=== PATIENT | female | born 1985 | race Two or more races ===

== ENCOUNTER → 2021-04-06 | Outpatient (CLI) | payer OTHER ==
[~2021-04-06] MED LIST: IBUP200T49 PO; NONE PER PT; PNV1TABL11 PO
[2021-04-06 11:07] LABS: MICROSCOPIC NOT IND
[2021-04-06 11:13] LABS: BASOPHILS % (AUTO) 1 % (0-1); EOSINOPHILS % (AUTO) 1 % (1-7); LYMPHOCYTES % (AUTO) 34 % (22-44); MEAN CORPUSCULAR HEMOGLOBIN 27.9 pg (27.0-34.8); MEAN CORPUSCULAR HGB CONC 33.3 g/dL (32.4-35.8); MEAN PLATELET VOLUME 7.5 fL (7.4-10.4); MONOCYTES % (AUTO) 6 % (2-9); NEUTROPHILS % (AUTO) 59 % (42-75); PLATELET COUNT 272 x10^3/uL (130-400); RED BLOOD COUNT 5.01 x10^6/uL (3.82-5.3); RED CELL DISTRIBUTION WIDTH 14.6 % (9.6-15.2)
[2021-04-06 11:32] LABS: CHLORIDE 107 mmol/L (98-107)
[2021-04-06 11:50] LABS: ALANINE AMINOTRANSFERASE 17 U/L (12-78); ALKALINE PHOSPHATASE 60 U/L (45-117); ANION GAP 3 mmol/L (5-15); BILIRUBIN,TOTAL 0.3 mg/dL (0.2-1.0); CALCIUM 9.1 mg/dL (8.5-10.1); CREATININE 0.76 mg/dL (0.55-1.02); TOTAL PROTEIN 8.5 g/dL (6.4-8.2)
== END | disposition home or self-care (01) ==
LOC: STAR 10:23
PROVIDERS: ATTEND Obstetrics & Gynecology Gynecology
DX: Z01.818 Encounter for other preprocedural examination (principal); N80.9 Endometriosis, unspecified; R10.2 Pelvic and perineal pain; N94.12 Deep dyspareunia; N94.6 Dysmenorrhea, unspecified
CPT/HCPCS: 36415; 80053; 81003; 84703; 85025

== ENCOUNTER 2021-04-13 05:40 | Day surgery (SDC) | payer OTHER ==
[~2021-04-13] VITALS: Ht 157.5 cm; Wt 46.3 kg
[2021-04-13 06:18] VITALS: BP 97/66
[2021-04-13] MEDS ORDERED: LACTATED RINGERS 1,000 ML IV SCH (06:30)
[2021-04-13] MEDS ORDERED: CHLORHEXIDINE 15 ML UDC PO ONE (06:30)
[2021-04-13] MEDS ORDERED: METHYLENE BLUE 50 MG/10 ML AMP ONE (06:58)
[2021-04-13] MEDS ORDERED: SILVER NITRATE STICK TP ONE (06:59)
[2021-04-13] MEDS ORDERED: FENTANYL PF 250 MCG/5ML ONE (07:19)
[2021-04-13] MEDS ORDERED: MIDAZOLAM 1 MG/ML, 2ML ONE (07:19)
[2021-04-13] MEDS ORDERED: GLYCOPYRROLATE 0.2MG/1ML, 5ML ONE (07:21)
[2021-04-13] MEDS ORDERED: ROCURONIUM 10MG/ML,5ML ONE (07:21)
[2021-04-13] MEDS ORDERED: SUCCINYLCHOLINE 20 MG/ML, 10ML ONE (07:21)
[2021-04-13] MEDS ORDERED: NEOSTIGMINE 1 MG/ML, 10ML ONE (07:21)
[2021-04-13] MEDS ORDERED: CEFAZOLIN 1,000 MG ONE (07:21)
[2021-04-13] MEDS ORDERED: DEXAMETHASONE 4 MG/ML, 1ML ONE (07:21)
[2021-04-13] MEDS ORDERED: PROPOFOL 10 MG/ML, 20ML ONE (07:21)
[2021-04-13] MEDS ORDERED: ONDANSETRON 2MG/ML, 2ML ONE (07:21)
[2021-04-13] MEDS ORDERED: HEPARIN 1,000 UNITS/ML, 10ML ONE (08:17)
[2021-04-13] MEDS ORDERED: ONDANSETRON 2MG/ML, 2ML IVPush PRN (08:30)
[2021-04-13] MEDS ORDERED: HYDROmorphone 1 MG/ML, 1ML INJ IVPush PRN (08:30)
[2021-04-13] MEDS ORDERED: METHOCARBAMOL 1,000 MG in DEXTROSE 5% 100 ML IV PRN (08:30)
[2021-04-13] MEDS ORDERED: PROMETHAZINE 25 MG SUPP PR PRN (08:30)
[2021-04-13] MEDS ORDERED: LORazepam 2 MG/ML, 1ML IVPush PRN (08:30)
[2021-04-13] MEDS ORDERED: HALOPERIDOL 5 MG/ML IV PRN (08:30)
[2021-04-13] MEDS ORDERED: MEPERIDINE/PF 25MG/0.5ML IVPush PRN (08:30)
[2021-04-13] MEDS ORDERED: FENTANYL PF 100 MCG/2ML IV PRN (08:30)
[2021-04-13] MEDS ORDERED: PROMETHAZINE 25 MG/ML, 1ML IVPush PRN (08:30)
[2021-04-13] MEDS ORDERED: OXYcodone 5 MG/5 ML ORAL.SOL UDC PO PRN (08:30)
[2021-04-13] MEDS ORDERED: ACETAMINOPHEN 325 MG TABLET PO PRN (08:30)
[2021-04-13] MEDS ORDERED: MEPERIDINE/PF 25MG/ML,1ML ONE (10:05)
[2021-04-13] MEDS ORDERED: ACETAMINOPHEN 650 MG/20.3 ML UDC ONE (10:24)
== END 2021-04-13 15:40 | disposition home or self-care (01) ==
LOC: OUT 05:40
PROVIDERS: ATTEND Obstetrics & Gynecology Gynecology
DX: N83.01 Follicular cyst of right ovary (principal); D25.2 Subserosal leiomyoma of uterus; N80.3 Endometriosis of pelvic peritoneum; N80.1 Endometriosis of ovary; N94.12 Deep dyspareunia; N94.5 Secondary dysmenorrhea; N73.6 Female pelvic peritoneal adhesions (postinfective)
CPT/HCPCS: 58350; 58662; 81025; 88112; 88305; J0330; J0690; J1100; J1644; J2175; J2250; J2405; J2704; J2710; J3010; J7120; Q9968